=== PATIENT | male | born 1940 | race Caucasian/White ===

== ENCOUNTER → 2017-05-26 | Outpatient (CLI) | payer MEDICARE, OTHER ==
--- NOTE | 2017-05-26 13:19 | CT ---
EXAMINATION TYPE: CT brain wo con DATE OF EXAM: 05/26/2017 COMPARISON: NONE HISTORY: Unspecified injury of head, syncope, trauma CT DLP: 1017.9 mGycm Automated exposure control for dose reduction was used. Helical acquisition through the brain FINDINGS: Cerebral vascular calcifications are present. There is no hemorrhage or hydrocephalus. Extra-axial fl uid spaces somewhat prominent over the convexities of questionable age. Remote lacunar infarcts suspe cted within the basal ganglia on the left, possibly the right, there is low attenuation in the auto job estimator al and internal capsule on the right. No hemorrhage or hydrocephalus. Inflammatory change present in the ethmoid air cells on the right area calvarium is intact. 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
== END | disposition home or self-care (01) ==
LOC: RADCTMAIN 12:44
PROVIDERS: ATTEND Nurse Practitioner
DX: S09.90XA Unspecified injury of head, initial encounter (principal)
CPT/HCPCS: 70450

== ENCOUNTER → 2017-06-10 | Outpatient (CLI) | payer MEDICARE, OTHER ==
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
== END | disposition home or self-care (01) ==
LOC: RADUSWWP 11:44
PROVIDERS: ATTEND Family Medicine
DX: R55 Syncope and collapse (principal)
CPT/HCPCS: 93880

== ENCOUNTER 2017-07-23 17:06 | Emergency (ER) | payer MEDICARE, OTHER ==
--- NOTE | 2017-07-23 18:03 | ED ---
General Adult HPI - General Chief complaint: Neuro Symptoms/Deficit Stated complaint: Weakness Time Seen by Provider: 07/23/17 17:51 Source: patient, family, RN notes reviewed Mode of arrival: wheelchair Limitations: no limitations - History of Present Illness Initial comments: Patient is a pleasant 76-year-old male presenting to the emergency department with complaints of weakness. Patient originally states he was worried about memory problems then later states this is not a problem at all. Daughter is present who states this is not an acute problem. Patient states then that he feels like his legs are not working well. Onset was either early this morning or yesterday. Patient feels like his brain as telling his legs to move but they are not. Daughter states patient has been clumsy and off balance. Patient has had recent neurological problems and neurological evaluation since the syncope episode a couple of months ago. Brain scan showed questionable fluid versus blood on the brain at that point. - Related Data Home Medications Medication Instructions Recorded Confirmed Metoprolol Tartrate [Lopressor] 50 mg PO HS 05/26/17 07/23/17 Multivitamins, Thera [Multivitamin 1 tab PO HS 05/26/17 07/23/17 (formulary)] Pravastatin Sodium [Pravachol] 80 mg PO HS 05/26/17 07/23/17 Clopidogrel Bisulfate [Plavix] 75 mg PO HS 07/23/17 07/23/17 Allergies Allergy/AdvReac Type Severity Reaction Status Date / Time No Known Allergies Allergy Verified 07/23/17 18:37 Review of Systems ROS Statement: Those systems with pertinent positive or pertinent negative responses have been documented in the HPI. ROS Other: All systems not noted in ROS Statement are negative. Constitutional: Denies: fever Eyes: Denies: eye pain ENT: Denies: ear pain Respiratory: Denies: cough Cardiovascular: Denies: chest pain Endocrine: Denies: fatigue Gastrointestinal: Denies: abdominal pain Genitourinary: Denies: dysuria Musculoskeletal: Denies: back pain Skin: Denies: rash Neurological: Reports: weakness. Denies: headache Past Medical History Past Medical History: Coronary Artery Disease (CAD), Hyperlipidemia, Hypertension Additional Past Medical History / Comment(s): ?tia's in past History of Any Multi-Drug Resistant Organisms: None Reported Past Surgical History: Coronary Bypass/CABG, Orthopedic Surgery Additional Past Surgical History / Comment(s): sx on marco thumbs, rt knee - cartilage removed Past Anesthesia/Blood Transfusion Reactions: No Reported Reaction Past Psychological History: No Psychological Hx Reported Smoking Status: Never smoker Past Alcohol Use History: Rare - Past Family History Father Family Medical History: No Reported History Additional Family Medical History / Comment(s): from "old age" Mother Family Medical History: No Reported History Additional Family Medical History / Comment(s): from "old age" General Exam Limitations: no limitations General appearance: alert, in no apparent distress Head exam: Present: atraumatic, normocephalic Eye exam: Present: normal appearance, PERRL, EOMI. Absent: nystagmus ENT exam: Present: normal oropharynx Neck exam: Present: normal inspection Respiratory exam: Present: normal lung sounds bilaterally Cardiovascular Exam: Present: regular rate, normal rhythm GI/Abdominal exam: Present: soft. Absent: tenderness Extremities exam: Present: normal inspection Neurological exam: Present: alert, oriented X3, CN II-XII intact Expanded Patient oriented to: Present: person, place, time Speech: Present: fluid speech Cranial nerves: EOM's Intact: Normal, Facial Sensation: Normal Cerebellar function: Finger to Nose: Normal Sensory exam: Upper Extremity Light Touch: Normal, Lower Extremity Light Touch: Normal Motor strength exam: RUE: 4, LUE: 5, RLE: 4, LLE: 5 Eye Response: (4) open spontaneously Motor Response: (6) obeys commands Verbal Response: (5) oriented Psychiatric exam: Present: normal affect, normal mood Skin exam: Present: normal color Course Vital Signs 07/23/17 07/23/17 07/23/17 17:29 18:33 19:00 Temperature 97.8 F Pulse Rate 79 73 73 Respiratory 16 16 16 Rate Blood Pressure 154/73 171/94 163/106 O2 Sat by Pulse 97 96 96 Oximetry EKG Findings - EKG Comments: EKG Findings:: Sinus rhythm at 72. For screening AV block NM 210. QRS 92. QT 396. QTc 433. Normal axis. Normal QRS. No acute ST change. Medical Decision Making - Medical Decision Making Patient reevaluated and unchanged. Patient and family updated on results and need for transfer. They do request [facility]. Case was discussed with Dr. Jameson who will accept transfer. - Lab Data Result diagrams: 07/23/17 18:04 07/23/17 18:04 Lab Results 07/23/17 07/23/17 07/23/17 Range/Units 18:04 18:04 18:04 WBC 7.6 (3.8-10.6) k/uL RBC 4.94 (4.30-5.90) m/uL Hgb 15.4 (13.0-17.5) gm/dL Hct 48.8 (39.0-53.0) % MCV 98.8 (80.0-100.0) fL MCH 31.1 (25.0-35.0) pg MCHC 31.5 (31.0-37.0) g/dL RDW 14.3 (11.5-15.5) % Plt Count 181 (150-450) k/uL Neutrophils % 70 % Lymphocytes % 18 % Monocytes % 7 % Eosinophils % 3 % Basophils % 1 % Neutrophils # 5.3 (1.3-7.7) k/uL Lymphocytes # 1.4 (1.0-4.8) k/uL Monocytes # 0.5 (0-1.0) k/uL Eosinophils # 0.2 (0-0.7) k/uL Basophils # 0.1 (0-0.2) k/uL PT (9.0-12.0) sec INR (<1.2) APTT (22.0-30.0) sec Sodium 141 (137-145) mmol/L Potassium 4.6 (3.5-5.1) mmol/L Chloride 104 (98-107) mmol/L Carbon Dioxide 27 (22-30) mmol/L Anion Gap 10 mmol/L BUN 25 H (9-20) mg/dL Creatinine 0.90 (0.66-1.25) mg/dL Est GFR (MDRD) Af Amer >60 (>60 ml/min/1.73 sqM) Est GFR (MDRD) Non-Af >60 (>60 ml/min/1.73 sqM) Glucose 87 (74-99) mg/dL Calcium 9.9 (8.4-10.2) mg/dL Total Bilirubin 0.9 (0.2-1.3) mg/dL AST 39 (17-59) U/L ALT 52 (21-72) U/L Alkaline Phosphatase 76 (38-126) U/L Total Creatine Kinase 485 H (55-170) U/L CK-MB (CK-2) 5.3 H* (0.0-2.4) ng/mL CK-MB (CK-2) Rel Index 1.1 Troponin I 0.012 (0.000-0.034) ng/mL Total Protein 7.3 (6.3-8.2) g/dL Albumin 4.5 (3.5-5.0) g/dL 07/23/17 Range/Units 18:04 WBC (3.8-10.6) k/uL RBC (4.30-5.90) m/uL Hgb (13.0-17.5) gm/dL Hct (39.0-53.0) % MCV (80.0-100.0) fL MCH (25.0-35.0) pg MCHC (31.0-37.0) g/dL RDW (11.5-15.5) % Plt Count (150-450) k/uL Neutrophils % % Lymphocytes % % Monocytes % % Eosinophils % % Basophils % % Neutrophils # (1.3-7.7) k/uL Lymphocytes # (1.0-4.8) k/uL Monocytes # (0-1.0) k/uL Eosinophils # (0-0.7) k/uL Basophils # (0-0.2) k/uL PT 10.6 (9.0-12.0) sec INR 1.1 (<1.2) APTT 23.3 (22.0-30.0) sec Sodium (137-145) mmol/L Potassium (3.5-5.1) mmol/L Chloride (98-107) mmol/L Carbon Dioxide (22-30) mmol/L Anion Gap mmol/L BUN (9-20) mg/dL Creatinine (0.66-1.25) mg/dL Est GFR (MDRD) Af Amer (>60 ml/min/1.73 sqM) Est GFR (MDRD) Non-Af (>60 ml/min/1.73 sqM) Glucose (74-99) mg/dL Calcium (8.4-10.2) mg/dL Total Bilirubin (0.2-1.3) mg/dL AST (17-59) U/L ALT (21-72) U/L Alkaline Phosphatase (38-126) U/L Total Creatine Kinase (55-170) U/L CK-MB (CK-2) (0.0-2.4) ng/mL CK-MB (CK-2) Rel Index Troponin I (0.000-0.034) ng/mL Total Protein (6.3-8.2) g/dL Albumin (3.5-5.0) g/dL - Radiology Data Radiology results: image reviewed (Computed tomography scan of the brain shows bilateral acute on chronic subdural. There is mixed density suspicious for some acute bleed.) Disposition Clinical Impression: Acute on chronic intracranial subdural hematoma Disposition: OTHER INSTITUTION NOT DEFINED Referrals: Nicolasa Carreon DO [Primary Care Provider] - 1-2 days Time of Disposition: 19:14 - Out of Hospital Transfer - Req. Specs Out of Hospital Transfer - Requested Specifics: Other Emergency Center
[2017-07-23 18:23] LABS: Basophils # (A) 0.1 k/uL (0-0.2); Basophils % (A) 1 %; Eosinophils # (A) 0.2 k/uL (0-0.7); Eosinophils % (A) 3 %; HCT 48.8 % (39.0-53.0); HGB 15.4 gm/dL (13.0-17.5); Lymphocytes # (A) 1.4 k/uL (1.0-4.8); Lymphocytes % (A) 18 %; MCH 31.1 pg (25.0-35.0); MCHC 31.5 g/dL (31.0-37.0); MCV 98.8 fL (80.0-100.0); Mean Platelet Volume 7.5; Monocytes # (A) 0.5 k/uL (0-1.0); Monocytes % (A) 7 %; Neutrophils # (A) 5.3 k/uL (1.3-7.7); Neutrophils % (A) 70 %; Platelet Count 181 k/uL (150-450); RBC 4.94 m/uL (4.30-5.90); RDW 14.3 % (11.5-15.5); WBC 7.6 k/uL (3.8-10.6)
[2017-07-23 18:29] LABS: INR 1.1 (<1.2); Partial Thromboplastin Time 23.3 sec (22.0-30.0); Prothrombin Time 10.6 sec (9.0-12.0)
[2017-07-23 18:30] LABS: ALT 52 U/L (21-72); AST 39 U/L (17-59); Albumin 4.5 g/dL (3.5-5.0); Alkaline Phosphatase 76 U/L (38-126); Anion Gap 10 mmol/L; Blood Urea Nitrogen 25 mg/dL (9-20); Calcium 9.9 mg/dL (8.4-10.2); Carbon Dioxide 27 mmol/L (22-30); Chloride 104 mmol/L (98-107); Glucose 87 mg/dL (74-99); Potassium 4.6 mmol/L (3.5-5.1); Sodium 141 mmol/L (137-145); Total Bilirubin 0.9 mg/dL (0.2-1.3); Total Protein 7.3 g/dL (6.3-8.2)
--- NOTE | 2017-07-23 18:35 | CT ---
EXAMINATION TYPE: CT brain wo con DATE OF EXAM: 07/23/2017 COMPARISON: 05/26/2017 HISTORY: Bilateral leg weakness, unable to walk. CT DLP: 1037.90 mGycm Automated exposure control for dose reduction was used. FINDINGS: There are hypodense foci in the anterior left internal capsule and also right anterior internal capsu le consistent with old lacunar infarcts. There is widening of the subdural space over the left fronta l and parietal convexity. There is also similar change at the right posterior parietal convexity. Thi s has mixed attenuation consistent with acute and chronic large bilateral subdural hematomas. The jennifer varium is intact. IMPRESSION: BILATERAL ACUTE AND CHRONIC SUBDURAL HEMATOMAS. THESE ARE NEW COMPARED TO LAST EXAM. THIS SIZE OF THE HEMATOMAS IS UNCHANGED COMPARED TO MR SCAN OF 06/30/2017. HEMATOMAS ON THE RIGHT SIDE APPEAR MORE AC EL AND HIGHER DENSITY. HEMATOMAS MEASURE UP TO 15 MM IN THICKNESS. THERE IS MIXED DENSITY IN THE FLU ID CONSISTENT WITH ACUTE AND CHRONIC BLEEDING. THIS EXAM WAS DISCUSSED WITH ER PHYSICIAN AT 6:30 PM.
--- NOTE | 2017-07-23 18:37 | XR ---
EXAMINATION TYPE: XR chest 2V DATE OF EXAM: 07/23/2017 COMPARISON: 05/26/2017 HISTORY: Weakness TECHNIQUE: Frontal and lateral views of the chest are obtained. FINDINGS: Heart and mediastinum are normal. Lungs are clear of consolidation. There are sternal wire s. There are no hilar masses. Bony thorax is intact. There is slight blunting of the lateral costophr enic angles. IMPRESSION: Minimal pleural reaction at the lung bases. No heart failure. Normal heart. No significa nt change compared to old exam.
[2017-07-23 18:52] LABS: Troponin I 0.012 ng/mL (0.000-0.034)
[2017-07-23 18:53] LABS: Creatine Kinase MB 5.3 ng/mL (0.0-2.4)
[2017-07-23 23:34] VITALS: BP 163/106; PULSE 73; RESP 16; TEMP 97.8
== END 2017-07-23 19:42 | disposition short-term general hospital (02) ==
LOC: EC 17:06
DX: I62.01 Nontraumatic acute subdural hemorrhage (principal); I62.03 Nontraumatic chronic subdural hemorrhage; R53.1 Weakness; E78.5 Hyperlipidemia, unspecified; I10 Essential (primary) hypertension; I25.10 Atherosclerotic heart disease of native coronary artery without angina pectoris; Z79.02 Long term (current) use of antithrombotics/antiplatelets; Z79.899 Other long term (current) drug therapy
CPT/HCPCS: 36415; 70450; 71046; 80053; 82550; 82553; 84484; 85025; 85610; 85730; 93005; 99285

== ENCOUNTER → 2017-11-11 | Outpatient (CLI) | payer MEDICARE, OTHER ==
--- NOTE | 2017-11-11 14:35 | CT ---
EXAMINATION TYPE: CT brain wo con DATE OF EXAM: 11/11/2017 HISTORY: Syncope and Collapse; Did not hit head CT DLP: 892.1 mGycm. Automated Exposure Control for Dose Reduction was Utilized. TECHNIQUE: CT scan of the head is performed without contrast. COMPARISON: CT brain July 23, 2017. MRI brain June 30, 2017 FINDINGS: There is no acute intracranial hemorrhage or midline shift identified. There is diffuse v entricular and sulcal prominence consistent with diffuse age-related cerebral atrophy. There is low- attenuation in the periventricular white matter consistent with chronic small vessel ischemic change. Old lacunar infarct right external capsule axial image 18 and left internal capsule axial image 17 a re redemonstrated. There are new Bilateral high frontal and parietal eldon holes with interval success ful drainage of subdural hemorrhages or fluid collections. The globes are intact and the visualized s inuses are clear. IMPRESSION: No acute intracranial hemorrhage or midline shift. There is mild diffuse age-related ce rebral atrophy and chronic small vessel ischemic change with bilateral lacunar infarcts all redemonst rated. Interval successful surgical change for bilateral subdural hematomas noted. Results of study were communicated to ordering nurse practitioner via telephone at time of dictation as requested.
== END | disposition home or self-care (01) ==
LOC: RADCTMAIN 13:26
PROVIDERS: ATTEND Nurse Practitioner
DX: G31.1 Senile degeneration of brain, not elsewhere classified (principal); I67.82 Cerebral ischemia; Z98.890 Other specified postprocedural states
CPT/HCPCS: 70450

== ENCOUNTER 2017-11-20 10:57 | Day surgery (SDC) | payer MEDICARE, OTHER ==
[2017-11-19 13:30] VITALS: BMI 24.4
[~2017-11-20 10:57] MED LIST: ceFAZolin 1,000 MG in SODIUM CHLORIDE 0.9% IRRIGATIO 250 ML IRRIGATION ONE; ceFAZolin IN SWFI 2 GM/20 ML SYRINGE IVP ONE
[2017-11-20] MEDS: SODIUM CHLORIDE 0.9% 1,000 ML IV SCH (11:42)
[2017-11-20] MEDS ORDERED: IODIXANOL 320 MG/ML 100 ML IV ONE (11:54)
[2017-11-20 12:21] LABS: Anion Gap 14 mmol/L; Blood Urea Nitrogen 21 mg/dL (9-20); Calcium 9.7 mg/dL (8.4-10.2); Carbon Dioxide 23 mmol/L (22-30); Chloride 106 mmol/L (98-107); Glucose 88 mg/dL (74-99); Sodium 143 mmol/L (137-145)
[2017-11-20] MEDS: fentaNYL (PF) 50 MCG/ML 2 ML AMP IV ONE ×2 (12:21→12:31)
[2017-11-20] MEDS: MIDAZOLAM 2 MG/2 ML VIAL IV ONE ×2 (12:21→12:25)
[2017-11-20 12:23] LABS: Basophils % (A) 1 %; Eosinophils # (A) 0.1 k/uL (0-0.7); Eosinophils % (A) 2 %; HCT 45.6 % (39.0-53.0); HGB 15.8 gm/dL (13.0-17.5); Lymphocytes # (A) 1.5 k/uL (1.0-4.8); Lymphocytes % (A) 25 %; MCH 31.7 pg (25.0-35.0); MCHC 34.6 g/dL (31.0-37.0); MCV 91.6 fL (80.0-100.0); Mean Platelet Volume 7.8; Monocytes # (A) 0.4 k/uL (0-1.0); Monocytes % (A) 7 %; Neutrophils # (A) 3.8 k/uL (1.3-7.7); Neutrophils % (A) 63 %; Platelet Count 199 k/uL (150-450); RBC 4.98 m/uL (4.30-5.90); RDW 13.6 % (11.5-15.5)
[2017-11-20] MEDS ORDERED: LIDOCAINE 1% (PF) 10MG/ML VIAL SQ ONE ×2 (12:23→12:30)
[2017-11-20] MEDS ORDERED: ACETAMINOPHEN IV (For NPO) 1,000 MG in EMPTY BAG 1 BAG IVPB ONE (13:09)
[2017-11-20] MEDS ORDERED: ACETAMINOPHEN TAB 325 MG TAB PO PRN (13:09)
--- NOTE | 2017-11-20 13:16 | P.PCN ---
Date of Procedure: 11/20/17 Preoperative Diagnosis: Sick sinus syndrome with pauses up to 14 seconds and recurrent syncopes Postoperative Diagnosis: The same Procedure(s) Performed: Axillary venography, dual-chamber permanent pacemaker insertion Description of Procedure: HISTORY: This is a 76-year-old gentleman with history of ischemic heart disease who has been having recurrent bouts of syncope. Patient had a loop recorder insertion. Recent evaluation showed sinus pauses up to 14 seconds. Patient is advised to have permanent pacemaker implantation. CONSENT:I have discussed the risks, benefits and alternative therapies for the above-mentioned procedure and for both sedation/analgesia as well as necessary blood product administration, if indicated, as they pertain to this patient. The patient has indicated understanding and acceptance of the risks and procedures discussed. PROCEDURE: Patient was brought to the lab in a fasting state. Patient was prepped and draped in the usual fashion. Patient was given IV sedation with fentanyl and Versed. The skin below the left clavicle was infiltrated with lidocaine. An incision was made parallel to deltopectoral groove was deepened until the pectoral fascia was exposed. A pocket was created by blunt dissection and cautery. Axillary venography was performed to delineate the course of the axillary vein. 2 sticks were performed into extrathoracic portion of the axillary vein and 2 sheaths were advanced over the guidewires and left in subclavian vein. Conscious Sedation: Versed 2 mg Fentanyl 50 g Duration 43 minutes LEADS: ATRIAL: This is manufactured by [employer]. Model number is [id number]. The serial number is [id number]. VENTRICULAR: This is manufactured by [employer]. Model number is [id number] and the serial number is [id number] The ventricular lead is maneuvered l with help of a straight and curved stylets into the left ventricle apical region. Satisfactory position was obtained and threshold measurements were made. The atrial lead was then maneuvered into the right atrial appendage. And thresholds were obtained. THRESHOLDS: ATRIUM: The minimum patient threshold is 0.8 V at a pulse width of 0.5. The impedance is 625 P-wave:. 6.2 VENTRICLE:. The minimum patient threshold is 0.8 at pulse width of 0.5. The impedance is 921 R-wave: 8 mV The leads and pulse generator remained in the pocket after it was washed with antibiotics. Pocket was closed in the usual fashion. The fascia was closed with 2-0 Prolene ,the subcutaneous tissue was closed with 3-0 Prolene and the skin was closed with 4-0 Prolene. PROGRAMMING: MODE: AAIR with mode switch to DDDR. RATE: State to 130 OUTPUT: Atrium: 3.5 V Ventricle: 3.5 V FINAL IMPRESSION: #1 axillary venography #2. Dual-chamber permanent pacemaker implantation and fluoroscopy COMPLICATIONS: None PLAN:. Patient will be monitored on the telemetry unit. Prophylactic antibiotics and be continued. The patient is stable he'll be discharged home tomorrow. Chest x-ray in the a.m.
[2017-11-20] MEDS: ceFAZolin IN SWFI 2 GM/20 ML SYRINGE IVP SCH (19:07)
[2017-11-20] MEDS ORDERED: ZOLPIDEM 5 MG TAB PO PRN (19:55)
[2017-11-20] MEDS ORDERED: MULTIVITAMINS, THERA 1 EACH TAB PO SCH (21:00)
[2017-11-20] MEDS ORDERED: PRAVASTATIN SODIUM 80 MG TAB PO SCH (21:00)
[2017-11-21] MEDS: ceFAZolin IN SWFI 2 GM/20 ML SYRINGE IVP SCH ×3 (00:49→09:55)
[2017-11-21] MEDS: SODIUM CHLORIDE 0.9% 1,000 ML IV SCH (06:59)
--- NOTE | 2017-11-21 08:14 | XR ---
EXAMINATION TYPE: XR chest 2V DATE OF EXAM: 11/21/2017 COMPARISON: 07/23/2017 TECHNIQUE: PA and lateral views submitted. HISTORY: Lead placement FINDINGS: Bilateral consolidation and pleural effusion stable. Double lead pacemaker seen with the proximal saw d in the right atrium and the distal lead overlying the right ventricle. No sizable pneumothorax. Bunny ateral pleural-based thickening noted. Arthropathy of the shoulders. Hypertrophic and degenerative ch jae of the spine. IMPRESSION: 1. Bilateral consolidation and effusion 2. No postprocedural complication.
[2017-11-21 08:46] VITALS: RESP 16
[2017-11-21] MEDS ORDERED: amLODIPine 5 MG TAB PO SCH (09:00)
[2017-11-21] MEDS ORDERED: SODIUM CHLORIDE 0.9% 1,000 ML IV SCH ×2 (09:45)
[2017-11-21] MEDS ORDERED: fentaNYL (PF) 50 MCG/ML 2 ML AMP ONE (09:48)
[2017-11-21] MEDS ORDERED: SODIUM CHLORIDE 0.9% 500 ML IV ONE (09:50)
[2017-11-21] MEDS ORDERED: fentaNYL (PF) 50 MCG/ML 2 ML AMP IV ONE (09:54)
[2017-11-21] MEDS ORDERED: LIDOCAINE 2% INJ 20 MG/ML SQ ONE (09:58)
--- NOTE | 2017-11-21 10:58 | P.PCN ---
Date of Procedure: 11/21/17 Preoperative Diagnosis: History of loop recorder insertion for evaluation of syncope Postoperative Diagnosis: Successful removal of the loop recorder Procedure(s) Performed: Loop recorder removal Description of Procedure: This patient had a loop recorder insertion in May of last year for evaluation of syncope. He was found to have significant sinus pauses up to 14 seconds. Patient had a permanent pacemaker, Yesterday. He is advised to have the loop recorder removed. The patient was brought to the lab in a fasting state. Patient was prepped and draped in the usual fashion. Patient was given IV sedation with fentanyl 25 g , which is moderate conscious sedation. The skin over the existing loop recorder was infiltrated with lidocaine. An incision was made on the medial and. The loop recorder was pulled out of the pocket after removing several adhesions. Patient tolerated the procedure well. 2 stay sutures were applied. Plan. Patient will be discharged later home. Follow-up in the office in one week. He'll continue prophylactic antibiotics
--- NOTE | 2017-11-21 11:02 | P.DS ---
Providers Date of admission: 11/20/2017 Attending physician: Lenora Solares Primary care physician: Nicolasa Carreon - Discharge Diagnosis(es) (1) Sick sinus syndrome Current Visit: Yes Status: Acute (2) History of permanent cardiac pacemaker placement Current Visit: Yes Status: Acute (3) Hypertension Current Visit: Yes Status: Acute (4) Syncope Current Visit: No Status: Acute Hospital Course: The patient was brought in for elective permanent pacemaker implantation for syncope and sick sinus syndrome. Patient had a dual-chamber permanent pacemaker , Yesterday. Patient tolerated the procedure well. Patient remained stable overnight. He chest x-ray showed proper lead position. Threshold remained stable. Patient also had a loop recorder extraction today which she tolerated. Patient is being discharged home later today. Patient will continue home medications and also prophylactic antibiotics. He is given usual instructions for the post pacemaker management at home. Patient is advised not to lift, push , pull with the left arm and also to keep the left arm below the shoulder level. He is instructed to call our office if he develops any swelling, significant pain or fever and chills. Follow-up in the office in one week Plan - Discharge Summary Discharge Rx Participant: No New Discharge Prescriptions: New Acetaminophen Tab [Tylenol] 650 mg PO Q6HR PRN tab PRN Reason: Mild Pain ceFAZolin [Kefzol] 2 gm IVP Q6HR syringe Zolpidem [Ambien] 5 mg PO HS PRN tab PRN Reason: SLEEP Cephalexin [Keflex] 500 mg PO Q8HR #10 cap Continue Multivitamins, Thera [Multivitamin (formulary)] 1 tab PO HS Pravastatin Sodium [Pravachol] 80 mg PO HS amLODIPine [Norvasc] 5 mg PO DAILY Discharge Medication List Multivitamins, Thera [Multivitamin (formulary)] 1 tab PO HS 05/26/17 [History] Pravastatin Sodium [Pravachol] 80 mg PO HS 05/26/17 [History] amLODIPine [Norvasc] 5 mg PO DAILY 11/20/17 [History] Acetaminophen Tab [Tylenol] 650 mg PO Q6HR PRN tab 11/21/17 [Rx] Cephalexin [Keflex] 500 mg PO Q8HR #10 cap 11/21/17 [Rx] Zolpidem [Ambien] 5 mg PO HS PRN tab 11/21/17 [Rx] ceFAZolin [Kefzol] 2 gm IVP Q6HR syringe 11/21/17 [Rx]
[2017-11-21 12:15] VITALS: BP 138/79; PULSE 77; TEMP 98
== END 2017-11-21 14:25 | disposition home or self-care (01) ==
LOC: CATHEP 10:57 → 3OBS 13:04 → CATHEP 11-21 14:25
PROVIDERS: ATTEND Internal Medicine Cardiovascular Disease
DX: I49.5 Sick sinus syndrome (principal); I10 Essential (primary) hypertension; E78.2 Mixed hyperlipidemia; I25.10 Atherosclerotic heart disease of native coronary artery without angina pectoris; Z95.1 Presence of aortocoronary bypass graft; Z79.899 Other long term (current) drug therapy
CPT/HCPCS: 33208; 33284; 80048; 85025; 71046; C1769; C1785; C1898; J2001 ×2; J2250; Q9967; J0690 ×3; J3010 ×2; J0131